=== PATIENT | female | born 1955 | race Caucasian/White ===

== ENCOUNTER 2016-12-11 10:12 | Outpatient (CLI) | payer OTHER ==
--- NOTE | 2016-12-12 16:58 | Mammography Report ---
DIGITAL SCREENING MAMMOGRAM: 12/11/2016 CLINICAL INDICATION: A 61-year-old for screening. COMPARISON: Films from [place], [place] dated 06/08/2014. TECHNIQUE: Routine CC and MLO projections were obtained of the breasts. FINDINGS: The breasts again demonstrate scattered fibroglandular densities bilaterally. Coarse, typ ically benign calcifications are present. No suspicious masses, clustered microcalcifications, or re gions of architectural distortion are identified. IMPRESSION: BENIGN FINDINGS. RECOMMENDATION: Routine annual screening unless otherwise clinically indicated. BIRADS CATEGORY 2 - BENIGN FINDINGS. STANDARD QUALIFYING STATEMENTS 1. This examination was reviewed with the aid of Computer-Aided Detection (CAD). 2. A negative or benign imaging report should not delay biopsy if clinically suspicious findings are present. Consider surgical consultation if warranted. More than 5% of cancers are not identified by i maging. 3. Dense breasts may obscure an underlying neoplasm. JOB #: [id number] EXT JOB #:[id number]
== END 2016-12-11 10:13 | disposition home or self-care (01) ==
LOC: DI.S 10:12
PROVIDERS: ATTEND Physician Assistant
DX: Z12.31 Encounter for screening mammogram for malignant neoplasm of breast (principal)
CPT/HCPCS: 77067

== ENCOUNTER 2017-05-02 17:02 | Outpatient (CLI) | payer BC ==
--- NOTE | 2017-05-03 19:47 | Ultrasound Report ---
DATE OF SERVICE: 05/02/2017 BLADDER ULTRASOUND: 05/02/2017 CLINICAL INDICATION: Lower abdominal injury, history of fall, sensation of being unable to empty obdulia dder. TECHNIQUE: Real-time scanning was performed with retail representative static images obtained. FINDINGS: Prevoid, the urinary bladder measures 12.1 x 9.4 x 7.8 cm, yielding a prevoid volume of 46 5 mL. The bladder wall appears normal. Bilateral ureteral jets are visualized. Postvoid residual is 10 mL IMPRESSION: Normal bladder. No significant postvoid residual. TD: 05/03/2017 09:48
== END 2017-05-02 17:03 | disposition home or self-care (01) ==
LOC: DI 17:02
PROVIDERS: ATTEND Nurse Practitioner Family
DX: R10.9 Unspecified abdominal pain (principal); R33.9 Retention of urine, unspecified
CPT/HCPCS: 76857

== ENCOUNTER 2018-04-01 08:35 | Day surgery (SDC) | payer BC ==
[2018-04-01] MEDS ORDERED: LACTATED RINGERS 1,000 ML IV ONE (09:24)
[2018-04-01] MEDS ORDERED: MIDAZOLAM 2 MG/2 ML VIAL IVP ONE (09:41)
[2018-04-01] MEDS ORDERED: fentaNYL 100 MCG/2 ML VIAL IVP ONE (09:41)
[2018-04-01 10:51] VITALS: BP 119/76
== END 2018-04-01 08:36 | disposition home or self-care (01) ==
LOC: SDS 08:35
PROVIDERS: ATTEND Surgery
PROC: 0DJD8ZZ Inspection of Lower Intestinal Tract, Via Natural or Artificial Opening Endoscopic (ICD-10-PCS; principal; 2018-04-01 09:45)
DX: R19.5 Other fecal abnormalities (principal); K64.8 Other hemorrhoids; I10 Essential (primary) hypertension; E78.00 Pure hypercholesterolemia, unspecified; Z86.010 Personal history of colon polyps; Z83.71 Family history of colonic polyps
CPT/HCPCS: 45378; J7120

== ENCOUNTER 2018-04-04 14:53 | Outpatient (CLI) | payer BC ==
--- NOTE | 2018-04-05 09:25 | Mammography Report ---
Reason: SCREENING MAMMO Procedure Date: 04/04/2018 Accession Number: [id number] / [id number] Procedure: ERIC - Screening Mammo w/Phil CPT Code: FULL RESULT: EXAM: Screening Mammo w/Phil DATE: 04/04/2018 3:27 PM CLINICAL HISTORY: Screening encounter. No known risk factors. TECHNIQUE: Bilateral CC and MLO views were obtained. COMPARISON: 12/11/2016 through 06/30/2014. FINDINGS: The breasts demonstrate diffuse fatty replacement bilaterally. A right upper breast stable intramammary lymph node is redemonstrated, typically benign. Coarse typically benign left breast calcifications are redemonstrated. No suspicious masses, clustered microcalcifications, or regions of architectural distortion are identified. IMPRESSION: Benign findings RECOMMENDATION: Routine annual screening unless otherwise clinically indicated. BIRADS CATEGORY 2: Benign findings STANDARD QUALIFYING STATEMENTS: 1. This examination was not reviewed with the aid of Computer-Aided Detection (CAD). 2. A negative or benign imaging report should not preclude biopsy if clinically suspicious findings are present. 3. Dense breasts may obscure an underlying neoplasm. 4. This examination was reviewed with the aid of 3D breast imaging (tomosynthesis).
== END 2018-04-04 14:54 | disposition home or self-care (01) ==
LOC: DI 14:53
PROVIDERS: ATTEND Physician Assistant
DX: Z12.31 Encounter for screening mammogram for malignant neoplasm of breast (principal)
CPT/HCPCS: 77063; 77067

== ENCOUNTER 2019-11-20 09:13 | Outpatient (CLI) | payer BC ==
[2019-11-20 15:23] LABS: BASOPHILS % (AUTO) 0.8 %; EOSINOPHILS # (AUTO) 0.1 10^3/uL (0.0-0.7); EOSINOPHILS % (AUTO) 2.1 %; HGB - HEMOGLOBIN 12.9 g/dL (12.0-16.0); LYMPHOCYTES # (AUTO) 1.4 10^3/uL (1.5-3.5); MEAN CORPUSCULAR HEMOGLOBIN 31.4 pg (27.0-31.0); MEAN CORPUSCULAR HGB CONC 32.3 g/dL (32.0-36.0); MEAN CORPUSCULAR VOLUME 97.3 fL (81.0-99.0); MEAN PLATELET VOLUME 10.1 fL (7.9-10.8); MONOCYTES # (AUTO) 0.4 10^3/uL (0.0-1.0); MONOCYTES % (AUTO) 10.6 %; NEUTROPHILS # (AUTO) 1.9 10^3/uL (1.5-6.6); NEUTROPHILS % (AUTO) 49.5 %; PLT - PLATELET COUNT 271 10^3/uL (130-450); RED BLOOD COUNT 4.11 10^6/uL (4.20-5.40); RED CELL DISTRIBUTION WIDTH 12.4 % (12.0-15.0); WHITE BLOOD COUNT 3.9 x10^3/uL (4.8-10.8)
[2019-11-20 15:54] LABS: ALBUMIN 5.1 g/dL (3.2-5.5); ALBUMIN/GLOBULIN RATIO 2.2 (1.0-2.2); ALKALINE PHOSPHATASE 32 IU/L (42-121); ALT ALANINE AMINOTRANSFERASE 17 IU/L (10-60); AST ASPARTATE AMINOTRANSFERASE 32 IU/L (10-42); BILIRUBIN,TOTAL 1.9 mg/dL (0.2-1.0); BUN - BLOOD UREA NITROGEN 16 mg/dL (6-20); CALCIUM 9.7 mg/dL (8.5-10.3); CARBON DIOXIDE - CO2 28 mmol/L (21-32); CHLORIDE 100 mmol/L (101-111); CHOL/HDL RATIO 3.6 (<4.4); CHOLESTEROL 245 mg/dL; CREATININE 0.9 mg/dL (0.4-1.0); GLUCOSE 100 mg/dL (70-100); HDL CHOLESTEROL 68 mg/dL; LDL CHOLESTEROL,CALCULATED 163 mg/dL; LDL/HDL RATIO 2.4 (<4.4); SODIUM 136 mmol/L (135-145); TOTAL PROTEIN 7.4 g/dL (6.7-8.2); VLDL CHOLESTEROL 14 mg/dL
[2019-11-20 15:57] LABS: THYROID STIMULATING HORMONE 1.01 uIU/mL (0.34-5.60)
[2019-11-20 15:59] LABS: FREE T4 (FREE THYROXINE) 0.8 ng/dL (0.58-1.64)
== END 2019-11-20 09:14 | disposition home or self-care (01) ==
LOC: LAB.S 09:13
PROVIDERS: ATTEND Nurse Practitioner Family
DX: I10 Essential (primary) hypertension (principal); E78.5 Hyperlipidemia, unspecified
CPT/HCPCS: 36415; 80053; 80061; 83721; 84439; 84443; 85025

== ENCOUNTER 2020-01-05 10:29 | Outpatient (CLI) | payer OTHER ==
--- NOTE | 2020-01-06 09:43 | Mammography Report ---
BILATERAL DIGITAL SCREENING MAMMOGRAM 3D/2D: 01/05/2020 CLINICAL: Routine screening. Comparison is made to exams dated: 04/04/2018 mammogram, 12/11/2016 mammogram - [facility], and 06/30/2014 mammogram - [facility]. There are scattered fibroglandular elements in both b reasts. No significant masses, calcifications, or other findings are seen in either breast. There has been no significant interval change. IMPRESSION: NEGATIVE There is no mammographic evidence of malignancy. A 1 year screening mammogram is recommended. This exam was interpreted at Station ID: [id number]. NOTE: For mammograms, a report in lay terms will be sent to the patient. Approximately 15% of breast malignancies will not be visualized mammographically. In the management of a palpable breast mass, a negative mammogram must not discourage biopsy of a clinically suspicious lesion. Electronically Signed By: Corrine lim/alanarad:01/05/2020 13:20:25 ACR BI-RADS Category 1: Negative 3341F PARENCHYMAL PATTERN: (A) - The breast(s) demonstrate(s) scattered fibroglandular densities. BI-RADS CATEGORY: (1) - 1 RECOMMENDATION: (ANNUAL) - Recommend routine annual screening mammography. [id number] 1 year screening LATERALITY: (B)
== END 2020-01-05 10:30 | disposition home or self-care (01) ==
LOC: DI 10:29
PROVIDERS: ATTEND Nurse Practitioner Family
DX: Z12.31 Encounter for screening mammogram for malignant neoplasm of breast (principal)
CPT/HCPCS: 77063; 77067

== ENCOUNTER 2020-01-05 10:36 | Outpatient (CLI) | payer OTHER ==
--- NOTE | 2020-01-05 16:36 | XRAY Report ---
PROCEDURE: Hand 3 View BILAT INDICATIONS: BILAT HAND PAIN TECHNIQUE: 3 views of the hand(s) acquired. COMPARISON: none FINDINGS: Bones: No fractures or dislocations. No suspicious bony lesions. FifthMCP subluxation bilaterally. Minimal bilateral first CMC degenerative narrowing. Soft tissues: No suspicious soft tissue calcifications. IMPRESSION: Early arthritic changes as above. Reviewed by: Sugey Barboza MD on 01/05/2020 4:35 PM PDT Approved by: Sugey Barboza MD on 01/05/2020 4:35 PM PDT Station ID: [id number]
== END 2020-01-05 10:37 | disposition home or self-care (01) ==
LOC: DI 10:36
PROVIDERS: ATTEND Nurse Practitioner Family
DX: M19.042 Primary osteoarthritis, left hand (principal); M19.041 Primary osteoarthritis, right hand

== ENCOUNTER 2021-12-05 14:17 | Outpatient (CLI) | payer MEDICARE ==
--- NOTE | 2021-12-05 16:54 | XRAY Report ---
PROCEDURE: Ribs w/PA Chest LT INDICATIONS: RIB PAIN, PLEURODYNIA, LEFT SIDE TECHNIQUE: 3 views of the left ribs were acquired, along with a single view chest. COMPARISON: None FINDINGS: Surgical changes and devices: ORIF of the left proximal humerus. Bones and chest wall: No fractures or dislocations. No suspicious bony lesions. Overlying soft tis sues appear unremarkable. Lungs and pleura: No pleural effusions or pneumothorax. Mild patchy bibasilar airspace opacity. Mediastinum: Mediastinal contours appear normal. Heart size is normal. IMPRESSION: 1. No acute fracture. No osseous lesion. If symptoms and/or clinical suspicion for pathology continue , further assessment with repeat plain films, or advanced imaging (e.g., CT or bone scan) is recommen ded for further assessment. 2. Mild bibasilar atelectasis versus pneumonia. Reviewed by: Mariel Samuels MD on 12/05/2021 4:52 PM PDT Approved by: Mariel Samuels MD on 12/05/2021 4:52 PM PDT Station ID: [id number]
== END 2021-12-05 14:18 | disposition home or self-care (01) ==
LOC: DI.S 14:17
PROVIDERS: ATTEND Nurse Practitioner Family
DX: R91.8 Other nonspecific abnormal finding of lung field (principal); R07.81 Pleurodynia

== ENCOUNTER 2022-02-15 10:57 | Outpatient (CLI) | payer MEDICARE ==
[2022-02-15] MEDS ORDERED: iohexoL-300 100 ML VIAL ONE (11:03)
[2022-02-15] MEDS ORDERED: DIATRIZOATE MEGLU/DIATRIZO SOD 30 ML BOTTLE PO ONE ×2 (11:03→14:40)
[2022-02-15 11:38] LABS: CALCIUM 10.2 mg/dL (8.5-10.3); CREATININE 0.8 mg/dL (0.4-1.0); POTASSIUM 3.8 mmol/L (3.5-5.0)
[2022-02-15] MEDS ORDERED: iohexoL-300 100 ML VIAL IVP ONE (14:40)
--- NOTE | 2022-02-15 17:26 | CT Report ---
PROCEDURE: Abdomen/Pelvis W INDICATIONS: LEFT LOWER QUAD PAIN CONTRAST: IV CONTRAST: Isovue 300 ml: 100 PO CONTRAST: Isovue 300 ml50 TECHNIQUE: After the administration of contrast, 5 mm thick sections acquired from the diaphragms to the sym physis. 5 mm thick coronal and sagittal reformats were acquired. For radiation dose reduction, the following was used: automated exposure control, adjustment of mA and/or kV according to patient size . COMPARISON: None. FINDINGS: Image quality: Excellent Lower chest: Scattered scarring/atelectasis. Solid organs: Liver is unremarkable. Gallbladder is unremarkable. Prominent CBD measuring pancreatic parenchyma is unremarkable. Spleen is normal size. No adrenal nodule. No hydronephrosis. Vessels and lymph nodes: No abdominal aortic aneurysm. The main portal vein is patent. No adenopathy by size criteria. Bowel and peritoneum: Mild wall thickening of the distal esophagus, nonspecific, most commonly due to reflux. No bowel obstruction. No pathologic ascites. Normal appendix. Colonic diverticula. No convin cing inflammatory changes seen currently. Body wall: Unremarkable Pelvis: Hysterectomy. The ovaries are probably atrophic. At the expected position of the left ovary, there is a tangle of mildly dilated veins. The left gonadal vein appears mildly dilated, with likely backflow of contrast from the left renal vein (3/44, 6/ and 18) Bones: Pubic symphysis degenerative changes. Spondylosis. No acute or suspicious osseous abnormality. IMPRESSION: No acute abdominopelvic pathology identified. Suspected venous reflux into the atrophic left ovary, w ith a mildly dilated left gonadal vein. This could be an etiology for left lower quadrant pain, or mi ght be incidental/no clinical significance. Mildly prominent CBD. Correlate with LFTs as needed. Other incidental findings above. Reviewed by: Tyron Dao MD on 02/15/2022 5:24 PM PDT Approved by: Tyron Dao MD on 02/15/2022 5:24 PM PDT Station ID: [id number]
== END 2022-02-15 10:58 | disposition home or self-care (01) ==
LOC: DI 10:57
PROVIDERS: ATTEND Nurse Practitioner Family
DX: R10.32 Left lower quadrant pain (principal); I86.8 Varicose veins of other specified sites
CPT/HCPCS: 36415; 74177; 80048; Q9963; Q9967

== ENCOUNTER 2022-07-04 12:53 | Outpatient (CLI) | payer MEDICARE ==
--- NOTE | 2022-07-05 12:28 | Mammography Report ---
BILATERAL DIGITAL SCREENING MAMMOGRAM 3D/2D: 07/04/2022 CLINICAL: Routine screening. Comparison is made to exams dated: 06/13/2021 mammogram - [facility] and 01/05/2020 mammogram - [facility]. There are scattered areas of fibroglandular density in both breasts (category b / 25%-50% glandular t issue). No significant masses, calcifications, or other findings are seen in either breast. There has been no significant interval change. IMPRESSION: NEGATIVE There is no mammographic evidence of malignancy. A 1 year screening mammogram is recommended. Based on the Tyrer Cuzick model (a risk assessment model) the patients lifetime risk is 3.8% and her 10 year risk is 2.1%. According to the ACR, ACS, and NCCN guidelines, an annual breast MRI exam alaina g with mammogram is recommended if the patients lifetime risk is 20% or greater. This exam was interpreted at Station ID: [id number]. NOTE: For mammograms, a report in lay terms will be sent to the patient. Approximately 15% of breast malignancies will not be visualized mammographically. In the management of a palpable breast mass, a negative mammogram must not discourage biopsy of a clinically suspicious lesion. Electronically Signed By: Israel jama/quiana:07/04/2022 16:19:55 letter sent: No_Letter ACR BI-RADS Category 1: Negative 3341F PARENCHYMAL PATTERN: (A) - The breast(s) demonstrate(s) scattered fibroglandular densities. BI-RADS CATEGORY: (1) - 1 RECOMMENDATION: (ANNUAL) - Recommend routine annual screening mammography. [id number] 1 year screening LATERALITY: (B)
== END 2022-07-04 12:54 | disposition home or self-care (01) ==
LOC: DI.S 12:53
DX: Z12.31 Encounter for screening mammogram for malignant neoplasm of breast (principal)

== ENCOUNTER 2023-08-01 13:50 | Outpatient (CLI) | payer MEDICARE ==
--- NOTE | 2023-08-02 09:56 | Mammography Report ---
BILATERAL DIGITAL SCREENING MAMMOGRAM 3D/2D: 08/01/2023 CLINICAL: Routine screening. Comparison is made to exams dated: 07/04/2022 mammogram - [facility], 06/13/2021 mamm [facility], and 01/05/2020 mammogram - [facility]. There are scattered areas of fibroglandular density in both breasts (category b / 25%-50% glandular t issue). No significant masses, calcifications, or other findings are seen in either breast. There has been no significant interval change. IMPRESSION: NEGATIVE There is no mammographic evidence of malignancy. A 1 year screening mammogram is recommended. Based on the Tyrer Cuzick model (a risk assessment model) the patient's lifetime risk is 3.1% and her 10 year risk is 1.8%. According to the ACR, ACS, and NCCN guidelines, an annual breast MRI exam alaina g with mammogram is recommended if the patient's lifetime risk is 20% or greater. This exam was interpreted at Station ID: [id number]. NOTE: For mammograms, a report in lay terms will be sent to the patient. Approximately 15% of breast malignancies will not be visualized mammographically. In the management of a palpable breast mass, a negative mammogram must not discourage biopsy of a clinically suspicious lesion. Electronically Signed By: Israel jama/quiana:08/01/2023 17:46:47 letter sent: No_Letter ACR BI-RADS Category 1: Negative 3341F PARENCHYMAL PATTERN: (A) - The breast(s) demonstrate(s) scattered fibroglandular densities. BI-RADS CATEGORY: (1) - 1 RECOMMENDATION: (ANNUAL) - Recommend routine annual screening mammography. [id number] 1 year screening LATERALITY: (B)
== END 2023-08-01 13:51 | disposition home or self-care (01) ==
LOC: DI.S 13:50
DX: Z12.31 Encounter for screening mammogram for malignant neoplasm of breast (principal); R92.323 Mammographic fibroglandular density, bilateral breasts